=== PATIENT | male | born 1955 | race Caucasian/White ===

== ENCOUNTER 2016-12-12 22:49 | Emergency (ER) | payer MEDICAID ==
[~2016-12-12] VITALS: Ht 177.8 cm; Wt 68.0 kg
[2016-12-12] MEDS ORDERED: ASPIRIN 81MG TABLET PO STA (23:38)
[2016-12-12] MEDS ORDERED: LORAZEPAM 2MG/ML CPJ IM ONE (23:45)
[2016-12-13 00:19] LABS: BASOPHILS % 0.4 % (0.0-2.0); HEMATOCRIT. 38.2 % (42.0-52.0); HEMOGLOBIN. 13.2 g/dL (14.0-18.0); LYMPHOCYTES % 10.2 % (20.0-50.0); MEAN CORPUSCULAR HEMOGLOBIN 30.6 pg (28.0-32.0); MEAN CORPUSCULAR VOLUME 88.4 fL (80.0-94.0); MEAN PLATELET VOLUME 7.5 fl (7.4-10.4); MONOCYTES % 5.9 % (2.0-8.0); NEUTROPHILS % 82.5 % (40.0-76.0); PLATELET 280 x1000/uL (130-400); RED BLOOD CELL COUNT 4.32 mill/uL (4.7-6.1); RED CELL DISTRIBUTION WIDTH 13.1 % (11.6-14.6)
[2016-12-13 00:38] LABS: CARBON DIOXIDE 28 mEq/L (21-32); CHLORIDE 104 mEq/L (98-107); TROPONIN I 0.02 ng/mL (0.00-0.04)
[2016-12-13 00:56] VITALS: BP 147/79
== END 2016-12-13 01:00 | disposition home or self-care (01) ==
LOC: ER 22:50
DX: F41.1 Generalized anxiety disorder (principal); R03.0 Elevated blood-pressure reading, without diagnosis of hypertension; Z79.82 Long term (current) use of aspirin; G47.00 Insomnia, unspecified
CPT/HCPCS: 36415; 71010; 80053; 84484; 85025; 93005; 96372; 99285; J2060; Z7610